=== PATIENT | female | born 1945 | race Caucasian/White ===

== ENCOUNTER → 2017-10-01 11:33 | Outpatient (CLI) | payer MEDICARE, SELFPAY ==
[2017-10-08 03:07] LABS: Clam <0.10 kU/L (Class 0); Codfish <0.10 kU/L (Class 0); Corn 0.22 kU/L (Class 0/I); Egg, White <0.10 kU/L (Class 0); Milk (Cow) 0.11 kU/L (Class 0/I); Peanut 0.24 kU/L (Class 0/I); SCALLOP <0.10 kU/L (Class 0); Shrimp <0.10 kU/L (Class 0); Soybean 0.13 kU/L (Class 0/I); Walnut, (Food) <0.10 kU/L (Class 0); Wheat 0.15 kU/L (Class 0/I)
[2017-10-08 09:06] LABS: Immunoglobulin E 120 IU/mL (0-100); SESAME SEED 0.28 kU/L (Class 0/I)
[2017-10-12 05:07] LABS: Alternaria tenuis <0.10 kU/L (Class 0); Ash, White 0.18 kU/L (Class 0/I); Aspergillus fumigatus <0.10 kU/L (Class 0); Bermuda Grass 0.14 kU/L (Class 0/I); Birch 0.17 kU/L (Class 0/I); Black Walnut 0.58 kU/L (Class II); Cat Hair / Dander,Stand <0.10 kU/L (Class 0); Cedar, Mountain 0.15 kU/L (Class 0/I); Cladosporium herbarum <0.10 kU/L (Class 0); Cockroach, American <0.10 kU/L (Class 0); Cottonwood 0.46 kU/L (Class I); D farinae Mite <0.10 kU/L (Class 0); D pteronyssinus <0.10 kU/L (Class 0); Dog Epithelia <0.10 kU/L (Class 0); Elm, American White 0.65 kU/L (Class II); Immunoglobulin E 106 IU/mL (0-100); Maple/Box Elder 0.38 kU/L (Class I); Mouse Urine <0.10 kU/L (Class 0); Mulberry, White <0.10 kU/L (Class 0); Oak, White 0.32 kU/L (Class I); Pecan 0.18 kU/L (Class 0/I); Penicillium Notatum <0.10 kU/L (Class 0); Pigweed, Rough <0.10 kU/L (Class 0); Ragweed, Short/Common 0.14 kU/L (Class 0/I); Russian Thistle 0.26 kU/L (Class 0/I); Sheep Sorrel 0.13 kU/L (Class 0/I); Sycamore, American 0.34 kU/L (Class I); Timothy Grass 0.11 kU/L (Class 0/I)
== END ==
PROVIDERS: Family Provider Family Medicine; PCP Family Medicine; Visit Provider Otolaryngology Otolaryngology/Facial Plastic Surgery
DX: T78.40XA Allergy, unspecified, initial encounter (principal)
CPT/HCPCS: 36415; 82785; 86003